=== PATIENT | male | born 1985 | race Caucasian/White ===

== ENCOUNTER 2017-04-13 12:57 | Emergency (ER) | payer OTHER ==
[~2017-04-13] VITALS: Ht 175.3 cm; Wt 93.0 kg
== END 2017-04-13 14:05 | disposition home or self-care (01) ==
LOC: ED 12:57
DX: S20.212A Contusion of left front wall of thorax, initial encounter (principal); Z87.891 Personal history of nicotine dependence; W01.198A Fall on same level from slipping, tripping and stumbling with subsequent striking against other object, initial encounter
CPT/HCPCS: 71101; 99283

== ENCOUNTER 2018-09-30 07:50 | Day surgery (SDC) | payer OTHER ==
[~2018-09-30] VITALS: Ht 172.7 cm; Wt 100.7 kg
[2018-09-30] MEDS ORDERED: IBUPROFEN800 MG PO (08:11)
--- NOTE | 2018-09-30 11:26 | NUR ---
09/30/18 1126 Sheets,Madelin 1121 PT ARRIVED TO PACU REACTIVE TO PAINFUL STIMULI, PT EYES REMAIN CLOSED. RESP EVEN AND UNLABORED ON 10L VIA MASK. RIGHT SHOULDER 4 SITES NOTED.
--- NOTE | 2018-09-30 12:29 | NUR ---
1200: PATIENT BACK IN DAY SURGERY ROOM FROM PACU. DENIES PAIN IN RIGHT SHOULDER. C/O SORE THROAT. IV SITE WNL. VS CHECKED. RIGHT SHOULDER DRESSINGS X 4 CDI. VS CHECKED. CAP REFILL TO RIGHT FINGERS WNL. STRONG RIGHT RADIAL PULSE. C/O NUMBNESS/TINGLING IN RIGHT FINGERS. GIVEN ICE WATER AND JELLO. AT BEDSIDE. CALL LIGHT WITHIN REACH.
--- NOTE | 2018-09-30 12:39 | NUR ---
PATIENT TOLERATED JELLO AND WATER. NO OTHER REQUESTS AT THIS TIME. AT BEDSIDE. CALL LIGHT WITHIN REACH.
[2018-09-30] MEDS ORDERED: NORCO 10-325 T1 EACH PO (13:05)
[2018-09-30] MEDS ORDERED: ULTRAM50 MG PO (13:05)
--- NOTE | 2018-09-30 14:49 | NUR ---
1300: VS CHECKED. PATIENT ASSISTED OOB AND TO BATHROOM. GAIT STEADY. VOID WITHOUT DIFFICULTY. 1335: IV DC'D WNL. PATIENT ASSISTED TO GET DRESSED. DISCHARGE INSTRUCTIONS GIVEN TO PATIENT AND . PATIENT DISCHARGED TO HOME WITH VIA WHEELCHAIR. ICE PACK REFILLED AND GIVEN TO PATIENT BEFORE DISCHARGE.
--- NOTE | 2018-10-01 07:02 | OR ---
[facility] [address] [place], [place] [address] Signed DATE OF OPERATION: 09/30/2018 SURGEON: Vishnu Barry MD PREOPERATIVE DIAGNOSIS: Superior labrum anterior and posterior lesion/anterior labral tear, right shoulder, with acromioclavicular joint arthritis. POSTOPERATIVE DIAGNOSES: 1. Labral tear with no superior labrum anterior and posterior lesion. 2. Arthritis, acromioclavicular joint with impingement. PROCEDURES PERFORMED: Shoulder arthroscopy with debridement of labrum. There was no labral repair needed. Additionally, a subacromial decompression and an arthroscopic Yobany were performed. ANESTHESIA: General. SPECIMENS AND COMPLICATIONS: There were no specimens or complications. BLOOD LOSS: Minimal. WHAT WAS DONE: The patient was taken to the operating room. After anesthesia was induced and the airway secured, he was placed in a modified beach chair position, and prepped and draped in a routine sterile fashion. The bony topography was outlined with a skin marking pen and the arthroscope was inserted through the standard posterior portal. Anterior portal was created using a switching stick technique. Diagnostic arthroscopy of the shoulder revealed a moderate hypertrophic synovitis of the shoulder. The rotator cuff was completely unremarkable as was the biceps tendon. Actually, we placed a grasper through the anterior portal and grabbed the biceps anchor and it was firmly attached to the glenoid. We then introduced an angled probe and used it to examine the labrum. There was some anterior labral tearing and there was an extra strip of synovial fluid around the subscapularis but the labrum was by enlarged, completely intact and well attached to the glenoid. We did introduce the VAPR and debrided the small portion of labral tearing. We then switched the scope to the anterior portal and placed the probe posteriorly, and again there was some fraying of the labrum but it was not detached from Electronically Signed By: VISHNU BARRY MD 10/01/18 0702 PATIENT NAME: IVON HARTMAN OPERATIVE REPORT DATE OF : 83 REPORT #: [id number] PHYSICIAN: VISHNU BARRY MD PCP: NO PRIMARY CARE PHYSICIAN REPORT IS CONFIDENTIAL AND NOT TO BE RELEASED WITHOUT AUTHORIZATION [facility] [address] [place], [place] [address] Signed the glenoid. Again with the scope in the anterior portal, we introduced a grasper, grabbed the biceps anchor and it was solidly attached to the glenoid. We then able to actually lift up the superior aspect of the labrum at the area of the biceps anchor and clearly was attached. We therefore irrigated the shoulder joint and drained it. We then switched the scope to the posterior portal and entered the subacromial space. The VAPR was then introduced laterally and the patient had a fairly significant hypertrophic subacromial bursitis. Once the bursectomy had been performed, there was some anterior hooking of the acromion and a very prominent inferior aspect of the distal clavicle. We then used the VAPR to remove the soft tissue off the undersurface of the acromion and the AC joint, the lateral centimeter of the clavicle. We then introduced the vinnie through the auxiliary lateral portal and did a generous subacromial decompression. We then coplaned to the undersurface of the distal clavicle with the level of the subacromial resection. Another auxiliary anterior portal was created and directed into the AC joint. Through this, we introduced the VAPR to remove the small amount of soft tissue in the AC joint and then I used the vinnie to remove about 9 mm over the distal clavicle. We then irrigated and drained the subacromial space. The patient had a routine wound closure and sterile dressings were applied. He was then awakened, taken to recovery room where he arrived in stable condition. Antibiotic protocols were followed and all the counts were correct. Vishnu Barry MD WFB/MODL /[id number] Copies: ~ Electronically Signed By: VISHNU BARRY MD 10/01/18 0702 PATIENT NAME: IVON HARTMAN OPERATIVE REPORT DATE OF : 83 REPORT #: [id number] PHYSICIAN: VISHNU BARRY MD PCP: NO PRIMARY CARE PHYSICIAN REPORT IS CONFIDENTIAL AND NOT TO BE RELEASED WITHOUT AUTHORIZATION
== END 2018-09-30 13:35 | disposition home or self-care (01) ==
LOC: OPS 07:50 → DS 07:50 → OPS 09:45
PROVIDERS: Orthopaedic Surgery
PROC: 0PB94ZZ Excision of Right Clavicle, Percutaneous Endoscopic Approach (ICD-10-PCS; 2018-09-30)
PROC: 0RNJ4ZZ Release Right Shoulder Joint, Percutaneous Endoscopic Approach (ICD-10-PCS; principal; 2018-09-30 09:45)
DX: M19.011 Primary osteoarthritis, right shoulder (principal); M25.811 Other specified joint disorders, right shoulder; S43.491A Other sprain of right shoulder joint, initial encounter; M75.51 Bursitis of right shoulder; M65.811 Other synovitis and tenosynovitis, right shoulder; Z87.891 Personal history of nicotine dependence
CPT/HCPCS: 01630; 64415; 76942; C1713; J0330; J0690; J1100; J1885; J2250; J2405; J2704; J2765; J2795; J3010; J7120

== ENCOUNTER 2023-02-18 01:33 | Emergency (ER) | payer OTHER ==
[~2023-02-18] VITALS: Ht 175.3 cm; Wt 95.3 kg
[~2023-02-18 01:33] MED LIST: CYCLOBENZAPRINE10 MG PO; IBUPROFEN800 MG PO; MELOXICAM7.5 MG PO; NORCO 10-325 T1 EACH PO; TRAMADOL HCL50 MG PO; ULTRAM50 MG PO
[2023-02-18] MEDS ORDERED: CELEBREX100 MG PO (04:01)
[2023-02-18 04:21] VITALS: BP 119/77
== END 2023-02-18 04:22 | disposition home or self-care (01) ==
LOC: ED 01:33
DX: M77.8 Other enthesopathies, not elsewhere classified (principal); Z87.891 Personal history of nicotine dependence; Z79.899 Other long term (current) drug therapy
CPT/HCPCS: 73130; 99283-25

== ENCOUNTER 2023-11-26 10:37 | Emergency (ER) | payer OTHER ==
[~2023-11-26] VITALS: Ht 175.3 cm; Wt 102.5 kg
[~2023-11-26 10:37] MED LIST changes: +CELEBREX100 MG PO
[2023-11-26 15:25] VITALS: BP 152/90
== END 2023-11-26 15:45 | disposition home or self-care (01) ==
LOC: ED 10:37
DX: S61.212A Laceration without foreign body of right middle finger without damage to nail, initial encounter (principal); W26.8XXA Contact with other sharp object(s), not elsewhere classified, initial encounter; Z87.891 Personal history of nicotine dependence
CPT/HCPCS: 12001; 99282-25